=== PATIENT | female | born 1985 | race Caucasian/White ===

== ENCOUNTER → 2017-10-29 08:57 | Outpatient (CLI) | payer OTHER, SELFPAY ==
[2017-10-29 10:22] LABS: Cholesterol 157 mg/dL (200); Glucose 82 mg/dL (74-106); High Density Lipoprotein 44 mg/dL; Triglycerides 120 mg/dL; Very Low Density Lipoprotein 24 mg/dL (5-40)
[2017-10-31 09:56] LABS: Vitamin D,25 Hydroxy 28.8 ng/mL (29.95-100.01)
== END ==
PROVIDERS: Visit Provider Obstetrics & Gynecology
DX: E28.2 Polycystic ovarian syndrome (principal); Z12.4 Encounter for screening for malignant neoplasm of cervix; Z13.21 Encounter for screening for nutritional disorder; Z13.220 Encounter for screening for lipoid disorders; Z13.1 Encounter for screening for diabetes mellitus
CPT/HCPCS: 36415; 80061; 82306; 82947

== ENCOUNTER → 2017-11-28 16:42 | Outpatient (CLI) | payer OTHER, SELFPAY ==
[2017-11-28 17:58] LABS: Hemoglobin A1c 4.3 % (4.2-6.3)
[2017-11-28 18:35] LABS: BUN 12 mg/dL (7-18); Creatinine, Serum 0.71 mg/dL (0.55-1.02); EST Glomerular Filtration Rate 102 mL/min (>60); Glucose 73 mg/dL (74-106)
[2017-11-28 18:36] LABS: Anion Gap 10 (5-15); BUN/Creat Ratio 16.9 RATIO (10-20); Calcium,Total 8.7 mg/dL (8.5-10.1); Chloride 108 mmol/L (98-107); Cholesterol 160 mg/dL (200); Est Glom Filt Rate - Afr Amer 124 mL/min (>60); High Density Lipoprotein 42 mg/dL; Potassium 3.9 mmol/L (3.5-5.1); Sodium Level 143 mmol/L (136-145); Thyroid Stim Hormone (TSH) 1.99 uIU/mL (0.358-3.74); Triglycerides 147 mg/dL; Very Low Density Lipoprotein 29 mg/dL (5-40)
== END ==
PROVIDERS: Visit Provider Family Medicine
DX: Z00.00 Encounter for general adult medical examination without abnormal findings (principal)
CPT/HCPCS: 36415; 80048; 80061; 83036; 84443

== ENCOUNTER → 2019-12-12 | Outpatient (CLI) | payer OTHER, SELFPAY ==
[2017-10-28 15:34] VITALS: BMI 49.1
== END | disposition home or self-care (01) ==
LOC: LABSPEC 10:37
PROVIDERS: Visit Provider Family Medicine
DX: K52.9 Noninfective gastroenteritis and colitis, unspecified (principal)
CPT/HCPCS: 87493; 87506

== ENCOUNTER → 2020-05-15 | Outpatient (CLI) | payer OTHER, SELFPAY ==
[2020-05-15 11:33] VITALS: BMI 43.7
[2020-05-21 13:32] LABS: HPV APTIMA, High Risk Negative (Negative)
== END | disposition home or self-care (01) ==
PROVIDERS: PCP Family Medicine; Visit Provider Obstetrics & Gynecology
DX: Z12.4 Encounter for screening for malignant neoplasm of cervix (principal)
CPT/HCPCS: 87624; 88175; G0145

== ENCOUNTER → 2020-05-30 09:26 | Outpatient (CLI) | payer OTHER, SELFPAY ==
[2020-05-15 11:33] VITALS: BMI 43.7
[2020-05-30 12:46] LABS: Anion Gap 3 (5-15); BUN 14 mg/dL (7-18); BUN/Creat Ratio 14.7 RATIO (10-20); Calcium,Total 9.1 mg/dL (8.5-10.1); Chloride 110 mmol/L (98-107); Cholesterol 170 mg/dL (200); Creatinine, Serum 0.95 mg/dL (0.55-1.02); EST Glomerular Filtration Rate 72 mL/min (>60); Est Glom Filt Rate - Afr Amer 87 mL/min (>60); Glucose 80 mg/dL (74-106); High Density Lipoprotein 49 mg/dL; Potassium 4.4 mmol/L (3.5-5.1); Sodium Level 139 mmol/L (136-145); Triglycerides 87 mg/dL; Very Low Density Lipoprotein 17 mg/dL (5-40)
== END ==
PROVIDERS: PCP Family Medicine; Visit Provider Family Medicine
DX: Z00.00 Encounter for general adult medical examination without abnormal findings (principal)
CPT/HCPCS: 36415; 80048; 80061

== ENCOUNTER → 2020-08-13 | Outpatient (CLI) | payer OTHER, SELFPAY ==
[2020-05-15 11:33] VITALS: BMI 43.7
== END | disposition home or self-care (01) ==
LOC: LABSPEC 16:16
PROVIDERS: PCP Family Medicine; Referring Provider Family Medicine; Visit Provider Family Medicine
DX: U07.1 COVID-19 (principal)
CPT/HCPCS: 87635; U0003

== ENCOUNTER 2021-03-06 08:00 | Emergency (ER) | payer OTHER, SELFPAY ==
[2021-03-06 08:01] VITALS: BP 176/103; PULSE 78; RESP 16; TEMP 36.4; O2SAT 100; BMI 44.0
--- NOTE | 2021-03-06 08:21 | EKG12_ITS ---
Test Reason : CHEST PAIN Blood Pressure : / mmHG Vent. Rate : 072 BPM Atrial Rate : 072 BPM P-R Int : 152 ms QRS Dur : 072 ms QT Int : 370 ms P-R-T Axes : 008 023 013 degrees QTc Int : 405 ms Normal sinus rhythm Normal ECG Confirmed by VICKY MASSEY, ZARA ([id number]), marketing editor NAOMI LEONARD ([id number]) on 03/09/2021 12:41:14 PM Referred By: PL Confirmed By:ZARA PERRY MD
--- NOTE | 2021-03-06 08:21 | RAD_ITS ---
STUDY: X-RAY CHEST REASON FOR EXAM: Female, 35 years old. Chest pain TECHNIQUE: Single AP portable view of the chest. COMPARISON: None. FINDINGS: EKG electrodes are seen. The lungs are clear and expanded. There is no demonstrated pleural abnormality. Normal size heart. Normal mediastinum and jasmin. Normal visualized pulmonary arteries. Normal visualized aortic arch and descending thoracic aorta. Normal visualized thoracic spine. Normal visualized ribs, clavicles, and shoulders. There is no demonstrated abnormality of the visualized soft tissue structures of the upper abdomen. RAD/Chest 1 View (Portable) IMPRESSION: Normal x-ray examination of the chest. Electronically Signed: Drew Prieto MD at 9:08 EDT , Service support ,
--- NOTE | 2021-03-06 08:23 | EDS_ITS ---
HPI History of Present Illness Chief Complaint: Chest Pain Informant: patient and spouse/S.O. Narrative Narrative: Patient presents with about a week to week and a half of anterior chest burning. She also has some aching across the upper chest at times. She also gets a sour acid taste in the mouth. She had an episode where she felt she had a little bit of left arm soreness to. That is now gone. She tried an obiv-tkr-eugbkgo acid medicine last night. She thinks it may have been Prilosec or Pepcid. It did not really change it dramatically. She only had 1 dose. Nothing really makes her symptoms better or worse. She is not short of breath. She has no pleuritic pain. No recent travel surgery immobilization personal or family history of DVT or PE. She was on Provera but has not been on it since April or May 2020. She has some obesity. But she has no high blood pressure diabetes her cholesterol is always been normal. The chart states that her mother had heart disease but there is no recorded heart disease. She states that her family doctor said her family was on the border of having heart disease but nobody is ever had a heart attack stents or bypass. [facility] Medical History Anxiety Morbid obesity PCOS (polycystic ovarian syndrome) Home Medications bupropion HCl 300 mg 24 hr tablet, extended release 300 mg PO QAM 05/15/20 [History Last Taken Unknown] esomeprazole magnesium [Nexium] 20 mg PO DAILY #30 cap 03/06/21 [Rx Last Taken Unknown] loratadine 10 mg PO DAILY 03/06/21 [History Last Taken Unknown] Allergy/AdvReac Type Severity Reaction Status Date / Time bacitracin Allergy Mild Hives Verified 03/06/21 08:03 [From Neosporin Plus PainRelief(emi)] Latex, Natural Rubber Allergy Mild Hives Verified 03/06/21 08:03 neomycin Allergy Mild Hives Verified 03/06/21 08:03 [From Neosporin Plus PainRelief(emi)] polymyxin B Allergy Mild Hives Verified 03/06/21 08:03 [From Neosporin Plus PainRelief(emi)] pramoxine Allergy Mild Hives Verified 03/06/21 08:03 [From Neosporin Plus PainRelief(emi)] adhesives Allergy Mild Hives Uncoded 03/06/21 08:03 metals Allergy Mild Hives Uncoded 03/06/21 08:03 Family History Mother Heart disease Hypertension Surgical History Bartholin gland cyst Social History adopted: No household members: spouse housing: house number of children: 0 current occupational status: employed current occupation: [employer] current occupational exposures/hazards: No pets and animals: No history of recent travel: No Smoking Status: Never smoker second hand exposure: No alcohol intake: current alcohol intake frequency: holidays/special occasions only substance use type: does not use diet: low carbohydrate what type of physical activity do you participate in: walking frequency: daily seatbelt use: always do you feel safe at home: Yes additional social history: Spouse- Rafa ROS ROS ED Constitutional Constitutional ED: Denies chills or fever(s) Eyes Eyes: Denies change in vision ENT ENT ED: Denies rhinorrhea or sore throat Cardiovascular Cardiovascular: Reports as per HPI and chest pain; Denies palpitations or racing heartbeat Respiratory/Chest Respiratory/Chest: Denies cough or dyspnea Gastrointestinal Gastrointestinal: Denies abdominal pain, nausea or vomiting Musculoskeletal Musculoskeletal: Denies arthralgias or neck pain Integumentary Denies rash Neurologic Neurologic: Denies headache(s), paresthesias or weakness Psychiatric Psychiatric: Reports anxiety Endocrine Endocrinology: Reports other Details: Patient states she is normally hypoglycemic and has never had high blood sugars. ; Denies polydipsia or polyuria Hematologic/Lymphatic Hematologic/Lymphatic: Denies easy bleeding or easy bruising Allergic/Immunologic Allergic/Immunologic ED: Denies urticaria EXAM Physical Exam Const Vital Signs: 03/06/21 08:01 03/06/21 08:12 03/06/21 08:27 Temperature 97.6 F L Temperature Source Temporal Pulse Rate 78 Respiratory Rate 16 Respiratory Effort Normal Non-Labored Blood Pressure 176/103 H Blood Pressure Mean 127 Pulse Ox 100 99 Oxygen Delivery Method Room Air Room Air 03/06/21 09:20 Temperature Temperature Source Pulse Rate 79 Respiratory Rate 12 Respiratory Effort Blood Pressure 127/70 H Blood Pressure Mean 89 Pulse Ox 99 Oxygen Delivery Method Room Air Positive well nourished, well developed and obese General Appearance ED: well developed and NAD Nutritional Appearance: obese HEENT Reports moist mucous membranes normocephalic Eyes PERRL and EOMs intact bilaterally General Eye ED: Negative for pale conjunctiva Neck no JVD Chest Wall inspection of chest normal and palpation of chest normal Chest Narrative: No notable chest wall tenderness at this time. Resp normal respiratory effort and clear to auscultation bilaterally Resp Narrative: No pain Effort and Inspection: respiratory distress Auscultation: Negative for rales, rhonchi or wheezes Cardio regular rate, regular rhythm and no murmurs Rate: other Other Details: Peripheral pulses are equal x4. GI normal to inspection, nondistended, normoactive bowel sounds and soft to palpation GI Narrative: Minimal epigastric discomfort. More subjective than objective. No rebound or guarding. No right upper quadrant tenderness. Back/Spine no CVA tenderness Extremity normal to inspection Extremity Narrative: No swelling, tenderness, edema, distended veins or asymmetry. General Extremety ED: Negative for edema, pulses abnormal or tenderness General Extremity: Negative for edema or pulses abnormal Neuro Sensorium / Orientation: awake and alert Psych mental status grossly normal Skin no rashes or lesions noted Heart Score History: Slightly/Non-Suspicious ECG: Normal Age: </= 45 years Risk Factors: 1 or 2 Risk Factors Troponin: </= Normal Limit Score: 1 MDM MDM MDM Narrative Medical decision making narrative: Patient's EKG, x-ray and blood work showed no acute process. Troponin is negative after a week of symptoms. I think her symptoms are likely due to reflux. We will get her started on Nexium. In either case she should follow-up with her physician to get rechecked. If she is having more pain, dyspnea, fevers, lightheadedness or any other concerning findings she should return for repeat evaluation. Since she has had symptoms for a week I do not think she needs a delta troponin. Lab Data Labs: Laboratory Results - last 24 hr 03/06/21 03/06/21 08:30 08:30 WBC 6.4 RBC 4.26 Hgb 13.3 Hct 40.0 MCV 93.9 MCH 31.2 MCHC 33.3 RDW Std Deviation 43.2 RDW Coeff of Scot 12.6 Plt Count 247 MPV 9.2 Immature Gran % (Auto) 0.300 Neut % (Auto) 69.7 Lymph % (Auto) 23.9 Willacy % (Auto) 5.3 Eos % (Auto) 0.5 Baso % (Auto) 0.3 Absolute Neuts (auto) 4.5 Absolute Lymphs (auto) 1.54 Nucleated RBC % 0 Sodium 140 Potassium 3.9 Chloride 110 H Carbon Dioxide 26.0 Anion Gap 4 L BUN 12 Creatinine 0.90 Estim Creat Clear Calc 80.00 Est GFR (MDRD) Af Amer 92 Est GFR (MDRD) Non-Af 76 BUN/Creatinine Ratio 13.3 Glucose 85 Calcium 8.6 Troponin I High Sens 5 Radiography Diagnostic Testing: Radiology Impression Chest X-Ray 03/06/21 08:21 IMPRESSION: Normal x-ray examination of the chest. Electronically Signed: Drew Prieto MD at 9:08 EDT , Service support , EKG Initial EKG: Comments: EKG done for chest pain read by me shows a normal sinus rhythm with overall rate of 72. No ectopy noted. No acute ST elevation or depression consistent with infarct or ischemia. ND interval, QRS duration, QTc are normal. Discharge Plan Triage Chief Complaint: Chest Pain ED Provider: Renan Persaud Dx/Rx/DC Orders Clinical Impression: Chest pain Instructions: ED Chest Pain, Uncertain Cause Prescriptions: New esomeprazole magnesium [Nexium] 20 mg capsule,delayed release(DR/EC) 20 mg PO DAILY Qty: 30 RF: 0 No Action bupropion HCl [Wellbutrin XL] 300 mg tablet extended release 24 hr 300 mg PO QAM RF: 0 loratadine 10 mg Tablet 10 mg PO DAILY RF: 0 Primary Care Provider: Kingsley Trevizo Referrals: Kingsley Trevizo MD [Primary Care Provider] - 3-5 Days Disposition Disposition: Home, Self Care
[2021-03-06 08:27] VITALS: O2SAT 99
[2021-03-06 08:49] LABS: Absolute Lymphocyte Count 1.54 X10^3/uL (0.83-4.51); Absolute Neutrophil Count 4.5 X10^3/uL (2.0-7.7); Basophil# 0.02 X10^3/uL; Basophil% 0.3 % (0-1); Eosinophil# 0.03 X10^3/uL; Eosinophils% 0.5 % (0-5); Hemoglobin 13.3 g/dL (12.0-15.0); Lymphocyte # 1.54 X10^3/ul (0.83-4.51); Lymphocyte % 23.9 % (19-41); Mean Corp Hgb Conc 33.3 g/dL (32-36); Mean Corpuscular Hgb 31.2 pg (27.0-32.0); Mean Corpuscular Volume 93.9 fL (81-99); Mean Platelet Vol. 9.2 fl (6.2-12.0); Monocyte# 0.34 X10^3/uL; Monocyte% 5.3 % (0-10); NRBC Flagged by Analyzer 0 % (0-5); Neutrophil # 4.49 X10^3/uL (2.7-7.7); Neutrophil % 69.7 % (47-70); Platelet Count 247 K/mm3 (150-450); RBC Distribution Width CV 12.6 % (11.6-14.6); RBC Distribution Width SD 43.2 fl (35.1-43.9); Red Blood Count 4.26 M/mm3 (4.2-5.4); White Blood Count 6.4 K/mm3 (4.4-11.0)
[2021-03-06 08:57] LABS: Anion Gap 4 (5-15); BUN 12 mg/dL (7-18); BUN/Creat Ratio 13.3 RATIO (10-20); Calcium,Total 8.6 mg/dL (8.5-10.1); Chloride 110 mmol/L (98-107); EST Glomerular Filtration Rate 76 mL/min (>60); Est Glom Filt Rate - Afr Amer 92 mL/min (>60); Glucose 85 mg/dL (74-106); Potassium 3.9 mmol/L (3.5-5.1); Sodium Level 140 mmol/L (136-145); Troponin-I HS 5 pg/mL (3.0-54.0)
[2021-03-06 09:20] VITALS: BP 127/70; PULSE 79; RESP 12; O2SAT 99
[2021-03-06 09:47] VITALS: BP 135/88; PULSE 71; RESP 16; O2SAT 98
== END 2021-03-06 09:48 | disposition home or self-care (01) ==
PROVIDERS: Emergency Provider Emergency Medicine; PCP Family Medicine
DX: R07.9 Chest pain, unspecified (principal); E28.2 Polycystic ovarian syndrome; E66.01 Morbid (severe) obesity due to excess calories; F41.9 Anxiety disorder, unspecified; Z79.899 Other long term (current) drug therapy
CPT/HCPCS: 71045; 80048; 84484; 85025; 93005; 99284

== ENCOUNTER → 2023-06-09 | Outpatient (CLI) | payer OTHER, SELFPAY ==
[2023-06-09 12:48] LABS: Anion Gap 6 (5-15); BUN 12 mg/dL (7-18); BUN/Creat Ratio 13.5 RATIO (10-20); Calcium,Total 8.7 mg/dL (8.5-10.1); Chloride 108 mmol/L (98-107); Cholesterol 181 mg/dL (200); Creatinine, Serum 0.89 mg/dL (0.55-1.02); EST Glomerular Filtration Rate 77 mL/min (>60); Est Glom Filt Rate - Afr Amer 93 mL/min (>60); Glucose 74 mg/dL (74-106); High Density Lipoprotein 57 mg/dL; Potassium 3.9 mmol/L (3.5-5.1); Sodium Level 138 mmol/L (136-145); Thyroid Stim Hormone (TSH) 2.87 uIU/mL (0.358-3.74); Triglycerides 103 mg/dL; Very Low Density Lipoprotein 21 mg/dL (5-40)
[2023-06-09 13:27] LABS: Vitamin D,25 Hydroxy 28.4 ng/mL
== END | disposition home or self-care (01) ==
LOC: MFPLAB 10:30
PROVIDERS: PCP Family Medicine; Visit Provider Family Medicine
DX: Z00.00 Encounter for general adult medical examination without abnormal findings (principal)
CPT/HCPCS: 36415; 80048; 80061; 82306; 84443

== ENCOUNTER → 2023-11-10 | Outpatient (CLI) | payer OTHER, SELFPAY ==
--- NOTE | 2023-11-10 17:02 | RAD_ITS ---
STUDY: X-RAY - RIGHT SHOULDER REASON FOR EXAM: Female, 38 years old. Pain. TECHNIQUE: 5 views of the right shoulder. COMPARISON: None. FINDINGS: Normal glenohumeral articulation. Normal acromioclavicular joint. Normal acromion. Normal humeral head and visualized proximal humerus. The soft tissue structures are unremarkable. There is no demonstrated fracture. Normal visualized pulmonary apex. RAD/Shoulder min 2 Views IMPRESSION: Normal x-ray examination of the right shoulder. Electronically Signed: Dandy Marino MD at 9:54 EDT ,
== END | disposition home or self-care (01) ==
LOC: MTRAD 17:01
PROVIDERS: PCP Family Medicine; Referring Provider Family Medicine; Visit Provider Family Medicine
DX: M25.511 Pain in right shoulder (principal)
CPT/HCPCS: 73030

== ENCOUNTER 2023-12-12 18:00 | Outpatient (RCR) | payer OTHER, SELFPAY ==
--- NOTE | 2023-11-04 10:03 | HP.PTEVAL_ITS ---
Patient's Visit Information Visit Information Visit Information: RADHA FISH is a 38 year old F referred to Physical Therapy by MANUEL Carlson with a diagnosis of STRAIN MOF MUSCLE UNSPECIFIED ,FASCIA AND TENDON AT SHOULDER UPPER ARM. Date of Evaluation: 11/04/23 Physical Therapist: Fred Lipscomb, PT, Cert MDT, OCS Visit Plan Frequency: 2x /Week Duration: 4 Weeks Plan: PRECAUTION:LATEX ALLERGY PT INTERVENTIONS POSTURAL EX'S ,MANUAL THERAPY STM ,STRENGTHENING UPPER BACK ,WU EX'S ,MODALITIES FOR PAIN AND ACTIVITY MODIFICATIONS Subjective Subjective: This 38 y/o female present to physical therapy with right shoulder pain . Patient has right shoulder pain pain ~ 2 months . Symptoms progressively worse past 2 day. Right shoulder blade and global shoulder and neck pain. Patient states has wrist pain. Seen DR conn. Tried steroid pack. symptoms caught better then progressively return. Patient has occasional tingling . No diagnostics. Aggravating factors sitting lifting , sleeping . Not specific with aggravating factors. Alleviating none. Patient symptoms affects sleeping. C/O AVALOS, ,denies dizziness /nausea/tinnitus. Constant constant ache and occasional stabbing. Symptoms affects QOL and function /ADLS . Patient has job entails sitting on computer. Patient goals to decrease pain in shoulder arm and neck. SOCIAL: VOCATION: [employer] Pain Right Shoulder: Pain Intensity (Out of 10): 6 Pain Intensity Range: 10 Right Scapula: Pain Intensity (Out of 10): 6 Pain Intensity Range: 10 Bilateral Neck: Pain Intensity (Out of 10): 6 Pain Intensity Range: 10 Objective Objective: POSTURE: mild /mod thoracic kyphosis rounded shoulders PALPATION: medial scapular /UT NEURO: denies paresthesia/tingling ,reflexes C5-6-7 2/3 CERVICAL ROM: flexion WFL ,lateral flexion WFL ,rotation min loss ,extension min loss ,retraction min loss SHOUlDER AROM: shoulder flexion /abduction 160 degrees , ER 90 degrees ,IR L1 MMT: RTC 4/5 ,deltoid 4-/5 THORACIC ROM: min loss all planes Special Tests C/S Radiculapathy - Left Upper limb tension test: Negative C/S Radiculapathy - Right Upper limb tension test: Negative C/S Radiculapathy - Left Spurlings: Negative C/S Radiculapathy - Right Spurlings: Positive C/S Radiculapathy - Left Cervical distraction: Positive C/S Radiculapathy - Right Cervical distraction: Negative C/S Radiculapathy - Left Relief test: Negative C/S Radiculapathy - Right Relief test: Negative Sharp Marifer: Negative Vertebral Artery Test: Negative Alar Ligament Test: Negative Cervical Sitting: Protrusion - Mechanical Response: No effect Cervical Sitting: Protrusion - Symptoms During Testing: Increases Cervical Sitting: Protrusion - Symptoms After Testing: No worse Cervical Sitting: Retraction - Mechanical Response: No effect Cervical Sitting: Retraction - Symptoms During Testing: Increases Cervical Sitting: Retraction - Symptoms After Testing: No worse Cervical Sitting: Retraction-Extension - Mechanical Response: No effect Cerv Sitting: Retraction-Extension - Symptoms During Testing: Increases Cerv Sitting: Retraction-Extension - Symptoms After Testing: No worse Cervical Sitting: Sidebend Right - Mechanical Response: No effect Cervical Sitting: Sidebend Right - Symptoms During Testing: No effect Cervical Sitting: Sidebend Right - Symptoms After Testing: No effect Cervical Sitting: Sidebend Left - Mechanical Response: No effect Cervical Sitting: Sidebend Left - Symptoms During Testing: No effect Cervical Sitting: Rotation Right - Mechanical Response: No effect Cervical Sitting: Rotation Right - Symptoms During Testing: No effect Cervical Sitting: Rotation Right - Symptoms After Testing: No effect Cervical Sitting: Rotation Left - Mechanical Response: No effect Cervical Sitting: Rotation Left - Symptoms During Testing: No effect Cervical Sitting: Rotation Left - Symptoms After Testing: No effect Cervical Sitting: Flexion - Mechanical Response: No effect Cervical Sitting: Flexion - Symptoms During Testing: No effect Cervical Sitting: Flexion - Symptoms After Testing: No effect R Shoulder Lift Off Test - Subscapular Tear: Negative R Shoulder Empty Can - SS: Negative R Shoulder Belly Press - SupScap: Negative R Shoulder Neer - Impingement: Negative R Shoulder [place] - Impingement: Negative R Shoulder O'Briens - SLAP/A-C: Negative R Shoulder Apprehension/Relocaton - SLAP: Negative Balance/Special Test Scores Oswestry Neck Score: 24 Goals Goal 1:: I with HEP for posture Goal Time Frame: 4-6 Weeks Goal 2:: Patient improve posture for ADLS 80% Goal Time Frame: 4-6 Weeks Goal 3:: Patient to demonstrate 50% improvement with less pain and improve function Goal Time Frame: 4-6 Weeks Goal 4:: Patient to improve neck oswestry by 5 points to improve QOL and function. Goal Time Frame: 4-6 Weeks Goal 5:: Patient improve cervical ROM for function of recovery for ADLS Goal Time Frame: 4-6 Weeks Rehabilitation Potential Physical Therapy Diagnosis: This patient has possible cervical derangement with faulty posture with sedentary lifestyle working on computer with pain with positioning and motioning testing cervical with no pain with ROM of shoulder and min affect with MMT shoulder and - special tests thus benefit from skilled PT Rehabilitation Potential: Fair Anticipated Interventions Patient/Client Instruction: Educate patient on: Condition and Plan of Care For the Purpose of:: To decrease pain, To increase ROM, To improve muscle performance and motor function, To increase tolerance to activity/condition/position, To improve performance and independence with ADL's, To improve ability of physical actions for home/community/work/leisure, To improve health of tissue, To decrease soft tissue restriction and To increase flexibility/ROM Therapeutic Exercise to Include: Strength training, Postural training, Flexibilty training, Active ROM and Wu Exercises For the Purpose of:: To decrease pain, To increase ROM, To improve muscle performance and motor function, To increase tolerance to activity/condition/position, To improve ability of physical actions for home/community/work/leisure, To improve health of tissue, To decrease soft tissue restriction, To increase flexibility/ROM and To improve tolerance to ADL's Manual Therapy Techniques to Include: Mobilization and Soft tissue mobilization For the Purpose of:: To decrease pain, To increase ROM, To improve nutrient delivery to tissue, To increase oxygenation perfusion, To improve health of tissue and To decrease soft tissue restriction TENS: Yes IF ES: Yes Cryotherapy (ice pack, ice massage): Yes Thermo therapy (hot pack): Yes Ultrasound (thermal/non thermal): Yes For the Purpose of:: To decrease pain, To improve nutrient delivery to tissue, To increase oxygenation perfusion, To improve health of tissue and To decrease soft tissue restriction Text: Thank you for the opportunity to evaluate your patient. For Medicare and Medicare HMO plans, please review the plan of care and approve it. It will need to be FAXED BACK to us at [phone] for Medicare purposes. For Medicare only, by signing this I certify the plan of care. Please let me know if there are questions or concerns regarding this plan of care. Physician Signature: __Date:
--- NOTE | 2023-12-12 18:48 | HP.PTDCSUM ---
Discharge Summary D/C summary: It has been my pleasure to treat RADHA FISH referred by MANUEL Carlson, with the diagnosis of STRAIN MOF MUSCLE UNSPECIFIED ,FASCIA AND TENDON AT SHOULDER UPPER ARM for a total of 9 visit(s). Discharge Date: 12/12/23 Please see the following information for a summary of their discharge status. Subjective Subjective: Plan to see DR andre Tuesday.Patient states needs need work breaks with better explanation. Patient pain is better. Patient symptoms with paresthesia/tingling has been intermittent hand Sitting makes symptoms worse Plan to see Dr Thakkar January Pain Right Shoulder: Pain Intensity (Out of 10): 4 Right Scapula: Pain Intensity (Out of 10): 4 Bilateral Neck: Pain Intensity (Out of 10): 4 Overall Improvement % Improvement: 80 Objective Objective/Function: POSTURE: mild /mod thoracic kyphosis rounded shoulders PALPATION: medial scapular /UT NEURO: denies paresthesia/tingling ,reflexes C5-6-7 2/3 CERVICAL ROM: flexion WFL ,lateral flexion WFL ,rotation min loss ,extension min loss ,retraction min loss SHOUlDER AROM: shoulder flexion /abduction 170 degrees , ER 90 degrees ,T 10 MMT: RTC 4/5 ,deltoid 4/5 THORACIC ROM: min loss all planes Special Tests C/S Radiculapathy - Left Upper limb tension test: Negative C/S Radiculapathy - Right Upper limb tension test: Negative C/S Radiculapathy - Left Spurlings: Negative C/S Radiculapathy - Right Spurlings: Positive C/S Radiculapathy - Left Cervical distraction: Positive C/S Radiculapathy - Right Cervical distraction: Negative C/S Radiculapathy - Left Relief test: Negative C/S Radiculapathy - Right Relief test: Negative Goals Goal 1:: I with HEP for posture Goal 2:: Patient improve posture for ADLS 80% Goal Progress: Goal Met Goal 3:: Patient to demonstrate 50% improvement with less pain and improve function Goal Progress: Goal Met Goal 4:: Patient to improve neck oswestry by 5 points to improve QOL and function. Goal Progress: Goal Met Goal 5:: Patient improve cervical ROM for function of recovery for ADLS Goal Progress: Goal Met Plan Plan: D/C RTD PATIENT COULD BENEFIT FROM 15 MIN BREAK EVERY 1 1/2 -2 HOURS DUE TO MINIMIZE SITTING PER MD RECOMMENDATIONS D/C Information Discharge Comments: HEP d/c sentence: If there are questions or concerns regarding this patient's physical therapy, please feel free to call me at [phone]. Thank you for the referral of this patient. Sincerely, Fred Lipscomb, PT, Cert MDT, OCS Balance/Gait/Functional tests Balance/Special Test Scores Oswestry Neck Score: 11 Improvement % Improvement: 80
== END 2023-12-12 19:00 | disposition home or self-care (01) ==
LOC: PT 18:00
PROVIDERS: PCP Family Medicine; Referring Provider Physician Assistant Surgical; Visit Provider Physician Assistant Surgical
DX: S46.911D Strain of unspecified muscle, fascia and tendon at shoulder and upper arm level, right arm, subsequent encounter (principal)
CPT/HCPCS: 97014; 97032; 97035; 97110; 97162; 97530; G0283

== ENCOUNTER → 2024-01-09 | Outpatient (CLI) | payer OTHER, SELFPAY | END | disposition home or self-care (01) | PROVIDERS: PCP Family Medicine; Referring Provider Chiropractor; Visit Provider Chiropractor | DX: M54.2 Cervicalgia (principal) | CPT/HCPCS: 72040 ==

== ENCOUNTER → 2024-03-15 | Outpatient (CLI) | payer OTHER, SELFPAY ==
--- NOTE | 2024-03-15 16:19 | RAD_ITS ---
STUDY: X-RAY - LUMBAR SPINE REASON FOR EXAM: Female, 38 years old. pain TECHNIQUE: 4 view(s) of the lumbar spine were obtained. COMPARISON: None FINDINGS: Normal lumbar lordosis. There is no substantial scoliosis. There is a normal alignment of the vertebrae. Normal vertebral bodies and endplates. Moderate narrowing of the disc at L5-S1, otherwise normal disc space heights. There is no demonstrated fracture. The soft tissue structures are unremarkable. RAD/L/S Spine Min 4 Views IMPRESSION: No acute abnormality. Moderate degenerative disc disease at L5-S1. Electronically Signed: Zohaib Hood MD at 23:59 EDT ,
== END | disposition home or self-care (01) ==
LOC: MTRAD 16:18
PROVIDERS: PCP Family Medicine; Referring Provider Chiropractor; Visit Provider Chiropractor
DX: M99.03 Segmental and somatic dysfunction of lumbar region (principal)
CPT/HCPCS: 72110